=== PATIENT | female | born 1990 | race Hispanic/Latino ===

== ENCOUNTER 2023-07-02 11:52 | Emergency (ER) | payer BC, MEDICAID ==
[~2023-07-02] VITALS: Ht 165.1 cm; Wt 82.1 kg
[2023-07-02 13:03] VITALS: BP 134/71; PULSE 102; RESP 16; O2SAT 97
[2023-07-02 14:36] LABS: BASOPHILS # (AUTO) 0.05 K/uL (0.00-0.20); BASOPHILS % (AUTO) 0.7 % (0.0-5.0); EOSINOPHILS % (AUTO) 1.4 % (0.0-8.0); IMMATURE GRANULOCYTE ABSOLUTE 0.03 K/uL (0-1); LYMPHOCYTES # (AUTO) 2.1 K/uL (1.0-4.8); LYMPHOCYTES % (AUTO) 28.6 % (21.0-51.0); MEAN CORPUSCULAR VOLUME 81.6 fL (79-99); MONOCYTES # (AUTO) 0.5 K/uL (0.1-1.0); MONOCYTES % (AUTO) 6.3 % (3.0-13.0); NEUTROPHILS # (AUTO) 4.6 K/uL (1.8-7.7); NEUTROPHILS % (AUTO) 62.6 % (40.0-77.0); PLATELET COUNT (AUTO) 212 K/uL (130-400); RED BLOOD CELL COUNT(AUTO) 4.85 MIL/uL (4.00-5.50); WHITE BLOOD COUNT (AUTO) 7.3 K/uL (4.8-10.8)
[2023-07-02 14:48] LABS: POTASSIUM 4.1 mmol/L (3.5-5.1)
[2023-07-02 14:51] LABS: APPEARANCE,URINE CLEAR (CLEAR); BILIRUBIN,URINE NEGATIVE (NEGATIVE); COLOR,URINE COLORLESS (YELLOW); GLUCOSE, URINE (UA) >=1000 mg/dL (NEGATIVE); KETONES,URINE 40 mg/dL (NEGATIVE); LEUKOCYTE ESTERASE ,URINE NEGATIVE Leu/uL (NEGATIVE); NITRATE,URINE NEGATIVE (NEGATIVE); OCCULT BLOOD,URINE NEGATIVE (NEGATIVE); PH,URINE 5.5 (5.0-8.0); PROTEIN,URINE 30 mg/dL (NEGATIVE); UROBILINOGEN,URINE 0.2 mg/dL (0.2-1.0)
[2023-07-02 14:54] LABS: ADD UA MICROSCOPIC YES
[2023-07-02 15:11] LABS: MUCUS,URINE RARE LPF (None Seen); SQUAMOUS EPITHELIAL CELL,UR RARE /HPF (0-2); WBC,URINE 0-1 /HPF (0-1)
[2023-07-02 15:24] LABS: MEAN CORPUSCULAR HEMOGLOBIN 30.5 pg (27.0-33.0)
[2023-07-02 15:25] LABS: MEAN CORPUSCULAR HGB CONC 36.4 g/dL (32.0-36.0)
[2023-07-02 15:26] LABS: HEMATOCRIT 40.1 % (36-48)
[2023-07-02 16:08] LABS: ALBUMIN 3.4 g/dL (3.5-5.0); BILIRUBIN,TOTAL 0.3 mg/dL (0.2-1.0); CREATININE 0.7 mg/dL (0.5-1.5); TOTAL PROTEIN, SERUM 7.8 g/dL (6.0-8.3)
== END 2023-07-02 15:04 | disposition home or self-care (01) ==
LOC: EDH 11:52
DX: O20.9 Hemorrhage in early pregnancy, unspecified (principal); E10.9 Type 1 diabetes mellitus without complications; Z3A.01 Less than 8 weeks gestation of pregnancy
CPT/HCPCS: 36415; 80053; 81001; 84703; 85025; 86900; 86901

== ENCOUNTER 2024-03-28 11:13 | Emergency (ER) | payer BC, MEDICAID ==
[~2024-03-28] VITALS: Ht 165.1 cm; Wt 83.5 kg
[~2024-03-28 11:13] MED LIST: ATOR40TA69 PO; CEPH500C2 PO; FENO145T PO; INSLAN SQ; INSU100I15 SQ; LISI40TA9 PO
[2024-03-28 11:16] VITALS: BP 132/87; PULSE 105; RESP 16
[2024-03-28] MEDS ORDERED: VALA100031 PO (14:10)
== END 2024-03-28 14:26 | disposition home or self-care (01) ==
LOC: EDH 11:13
DX: G51.0 Bell's palsy (principal); I10 Essential (primary) hypertension; E78.00 Pure hypercholesterolemia, unspecified; E10.8 Type 1 diabetes mellitus with unspecified complications; Z79.4 Long term (current) use of insulin; Z79.899 Other long term (current) drug therapy; Z91.018 Allergy to other foods
CPT/HCPCS: 70450; 81025

== ENCOUNTER 2024-08-02 14:26 | Emergency (ER) | payer BC, MEDICAID ==
[~2024-08-02] VITALS: Ht 162.6 cm; Wt 80.7 kg
[~2024-08-02 14:26] MED LIST changes: +VALA100031 PO
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
[2024-08-02 14:56] LABS: HCG,QUALITATIVE URINE NEGATIVE (NEGATIVE)
[2024-08-02 15:03] LABS: APPEARANCE,URINE CLOUDY (CLEAR); BILIRUBIN,URINE NEGATIVE (NEGATIVE); COLOR,URINE COLORLESS (YELLOW); GLUCOSE, URINE (UA) >=1000 mg/dL (NEGATIVE); KETONES,URINE 40 mg/dL (NEGATIVE); LEUKOCYTE ESTERASE ,URINE NEGATIVE Leu/uL (NEGATIVE); NITRATE,URINE NEGATIVE (NEGATIVE); OCCULT BLOOD,URINE LARGE (NEGATIVE); PH,URINE 5.5 (5.0-8.0); PROTEIN,URINE 50 mg/dL (NEGATIVE); UROBILINOGEN,URINE 0.2 mg/dL (0.2-1.0)
[2024-08-02 15:04] LABS: BASOPHILS # (AUTO) 0.05 K/uL (0.00-0.20); BASOPHILS % (AUTO) 0.8 % (0.0-5.0); EOSINOPHILS # (AUTO) 0.06 K/uL (0.00-0.70); HEMATOCRIT 37.4 % (36-48); IMMATURE GRANULOCYTE ABSOLUTE 0.01 K/uL (0-1); LYMPHOCYTES # (AUTO) 1.4 K/uL (1.0-4.8); LYMPHOCYTES % (AUTO) 23.5 % (21.0-51.0); MEAN CORPUSCULAR HEMOGLOBIN 30.3 pg (27.0-33.0); MEAN CORPUSCULAR HGB CONC 35.8 g/dL (32.0-36.0); MEAN CORPUSCULAR VOLUME 84.6 fL (79-99); MONOCYTES # (AUTO) 0.4 K/uL (0.1-1.0); NEUTROPHILS # (AUTO) 4.1 K/uL (1.8-7.7); NEUTROPHILS % (AUTO) 67.5 % (40.0-77.0); PLATELET COUNT (AUTO) 248 K/uL (130-400); RED BLOOD CELL COUNT(AUTO) 4.42 MIL/uL (4.00-5.50); RED CELL DISTRIBUTION WIDTH 12.7 % (11.0-15.5)
[2024-08-02 15:04] LABS: ADD UA MICROSCOPIC YES
[2024-08-02 15:26] LABS: BACTERIA,URINE MOD /HPF (None Seen); MUCUS,URINE RARE LPF (None Seen); SQUAMOUS EPITHELIAL CELL,UR RARE /HPF (0-2); YEAST,URINE BUDDING RARE /HPF (None Seen)
--- NOTE | 2024-08-02 15:36 | EKG ---
[facility] Test Date: 2024-08-02 Test Time: 15:33:21 Pat Name: TRISHA ABARCA Department: ED Room: Gender: F Chef: [id number] : 1990 Requested By: KASH EMANUEL Order Number: [id number] Reading MD: Anjum Vázquez Measurements Intervals [place] Rate: 105 P: 50 PA: 131 QRS: 41 QRSD: 75 T: 77 QT: 352 QTc: 465 Interpretive Statements Sinus tachycardia No previous ECG available for comparison Electronically Signed On 08-02-2024 17:30:50 CDT by Anjum Vázquez Please click the below link to view image of tracing.
[2024-08-02 15:42] LABS: ALBUMIN 3.1 g/dL (3.5-5.0); BILIRUBIN,TOTAL 0.4 mg/dL (0.2-1.0); CREATININE 0.9 mg/dL (0.5-1.0); POTASSIUM 4.1 mmol/L (3.5-5.1); TOTAL PROTEIN, SERUM 7.1 g/dL (6.0-8.3)
[2024-08-02 16:24] LABS: ABG HCO3 19.2 mmol/L (21.0-28.0); ABG OXYGEN SATURATION 97.7 % (94.0-98.0); ABG PCO2 31 mmHg (32-45); ABG PH 7.415 (7.350-7.450); DEVICE COMMENT RR; PO2, ARTERIAL BG 99.6 mmHg (83.0-108.0); VENT MODE, BG ROOM AIR (ROOM AIR)
[2024-08-02] MEDS: 0.9%NACL 1000ML 1,000 ML IV ONE (17:51)
[2024-08-02 17:52] VITALS: TEMP 98.4
[2024-08-02] MEDS: ketOROlac 15MG/ML VIAL (15MG/ML) IV ONE (17:52)
[2024-08-02 19:25] VITALS: BP 140/90; PULSE 92; RESP 20; O2SAT 97
[2024-08-02] MEDS ORDERED: INSULIN humuLIN R 100 UNIT/ML 3ML SQ ONE (19:30)
--- NOTE | 2024-08-02 20:31 | NUR ---
PATIENT AMA; PATIENT REQUESTING TO LEAVE AMA AT THIS TIME. ED MD AT BEDSIDE; PRIMARY NURSE AT BEDSIDE; PATIENT REPORTS FEELING BETTER AND REQUESTING TO LEAVE AMA AT THIS TIME. PATIENT WAS REINFORCED BY PRIMARY RN, ED MD ABNOUT ELEVATED BS, RISKS AND CONCEQUENCES INVOLVED WITH LEAVING HOSPITAL AT THIS TIME INCLUDING BUT NOT LIMITING , AND THE BENIFITS OF CONTINUED [place]. PATIENT STATES UNDERSTANDING AND IS STILL REQUESTING TO LEAVE AMA AT THIS TIME. PATIENT ADVISED TO CALL 911, OR RETURN TO NEAREST ED FOR RETURN OR WORSENING OF SYMPTOMS. PATIENT STATES UNDERSTANDING.
== END 2024-08-02 22:37 | disposition left against medical advice (07) ==
LOC: EDH 14:26
DX: E11.65 Type 2 diabetes mellitus with hyperglycemia (principal); E86.0 Dehydration; M54.50 Low back pain, unspecified; I10 Essential (primary) hypertension; E78.00 Pure hypercholesterolemia, unspecified; Z79.4 Long term (current) use of insulin; Z79.624 Long term (current) use of inhibitors of nucleotide synthesis; Z79.899 Other long term (current) drug therapy; Z91.148 Patient's other noncompliance with medication regimen for other reason
CPT/HCPCS: 99284; 96374; 96361; 83735; 80053; 82803; 83690; 85025; 82948 ×2; 81001; 81025; 36415; 93005; 36600; J7030; J1885

== ENCOUNTER 2024-08-19 15:42 | Inpatient (IN) | payer BC, MEDICAID ==
[~2024-08-19] VITALS: Ht 162.6 cm; Wt 36.7 kg
[2024-08-19 16:36] LABS: BASOPHILS # (AUTO) 0.03 K/uL (0.00-0.20); BASOPHILS % (AUTO) 0.5 % (0.0-5.0); EOSINOPHILS # (AUTO) 0.06 K/uL (0.00-0.70); HEMATOCRIT 35.3 % (36-48); IMMATURE GRANULOCYTE ABSOLUTE 0.02 K/uL (0-1); LYMPHOCYTES # (AUTO) 1.4 K/uL (1.0-4.8); LYMPHOCYTES % (AUTO) 23.2 % (21.0-51.0); MEAN CORPUSCULAR HGB CONC 35.4 g/dL (32.0-36.0); MEAN CORPUSCULAR VOLUME 84.9 fL (79-99); MONOCYTES # (AUTO) 0.4 K/uL (0.1-1.0); MONOCYTES % (AUTO) 6.6 % (3.0-13.0); NEUTROPHILS # (AUTO) 4.1 K/uL (1.8-7.7); NEUTROPHILS % (AUTO) 68.4 % (40.0-77.0); PLATELET COUNT (AUTO) 188 K/uL (130-400); RED BLOOD CELL COUNT(AUTO) 4.16 MIL/uL (4.00-5.50); RED CELL DISTRIBUTION WIDTH 12.9 % (11.0-15.5)
[2024-08-19 16:48] LABS: CREATININE 0.6 mg/dL (0.5-1.0); POTASSIUM 4.7 mmol/L (3.5-5.1)
[2024-08-19 16:52] LABS: APPEARANCE,URINE CLEAR (CLEAR); BILIRUBIN,URINE NEGATIVE (NEGATIVE); COLOR,URINE LIGHT-YELLOW (YELLOW); GLUCOSE, URINE (UA) >=1000 mg/dL (NEGATIVE); KETONES,URINE 40 mg/dL (NEGATIVE); LEUKOCYTE ESTERASE ,URINE NEGATIVE Leu/uL (NEGATIVE); NITRATE,URINE NEGATIVE (NEGATIVE); OCCULT BLOOD,URINE NEGATIVE (NEGATIVE); PH,URINE 5.5 (5.0-8.0); PROTEIN,URINE 30 mg/dL (NEGATIVE); UROBILINOGEN,URINE 0.2 mg/dL (0.2-1.0)
[2024-08-19 16:54] LABS: ADD UA MICROSCOPIC YES
[2024-08-19 17:02] LABS: HCG,QUALITATIVE URINE NEGATIVE (NEGATIVE)
[2024-08-19 17:05] LABS: BACTERIA,URINE RARE /HPF (None Seen); MUCUS,URINE RARE LPF (None Seen); SQUAMOUS EPITHELIAL CELL,UR RARE /HPF (0-2)
[2024-08-19] MEDS: 0.9%NACL 1000ML 1,000 ML IV ONE (17:06)
[2024-08-19] MEDS: hydroMORPHone 1 MG INJ IVP ONE (17:28)
[2024-08-19 18:45] LABS: ALBUMIN 2.9 g/dL (3.5-5.0); BILIRUBIN,DIRECT 0.1 mg/dL (0.0-0.3); BILIRUBIN,TOTAL 0.5 mg/dL (0.2-1.0); TOTAL PROTEIN, SERUM 6.9 g/dL (6.0-8.3)
[2024-08-19 18:50] LABS: ABG BASE EXCESS -0.9 mmol/L (-2.0-3.0); ABG HCO3 23.1 mmol/L (21.0-28.0); ABG OXYGEN SATURATION 96.8 % (94.0-98.0); ABG PCO2 36 mmHg (32-45); ABG PH 7.421 (7.350-7.450); DEVICE COMMENT RR LILYRN; PO2, ARTERIAL BG 86.3 mmHg (83.0-108.0); VENT MODE, BG RA (ROOM AIR)
[2024-08-19] MEDS: INSULIN humuLIN R 100 UNIT/ML 3ML SQ ONE (19:58)
[2024-08-19] MEDS: FAMOTIDINE 20MG VIAL IV SCH (21:01)
[2024-08-19] MEDS: morPHINE 2 MG SYG IVP PRN (21:09)
[2024-08-19] MEDS ORDERED: DEXTROSE 5 %-0.45 % NACL 1,000 ML IV SCH ×2 (22:00)
[2024-08-19] MEDS ORDERED: INSULIN REGULAR, HUMAN 3ML 100 UNIT in 0.9%NACL 100ML 100 ML IV SCH ×2 (22:00)
[2024-08-19] MEDS ORDERED: SODIUM CL 4MEQ/ML 30ML 154 MEQ in DEXTROSE 10%-WATER 961.5 ML IV SCH (22:00)
[2024-08-19] MEDS ORDERED: MAGNESIUM 2GM PREMIX 50ML 50 ML IV SCH ×2 (22:00)
[2024-08-19] MEDS ORDERED: 0.9%NACL 1000ML 1,000 ML IV SCH ×2 (22:00)
[2024-08-19] MEDS ORDERED: INSULIN REGULAR, HUMAN 3ML 100 UNIT in 0.9%NACL 100ML 99 ML IV SCH (22:00)
[2024-08-19] MEDS ORDERED: D5W-1/2 NS/20MEQ KCL 1,000 ML IV SCH ×2 (22:00)
[2024-08-19] MEDS ORDERED: PoTASSium chloRIDE 20MEQ/10ML 20 MEQ in 0.9%NACL 1000ML 1,000 ML IV SCH ×2 (22:00)
[2024-08-19 22:18] LABS: CREATININE 0.5 mg/dL (0.5-1.0); POTASSIUM 3.7 mmol/L (3.5-5.1)
[2024-08-19 22:46] VITALS: TEMP 98.2
[2024-08-19 23:20] VITALS: BP 139/84; PULSE 87; RESP 16
[2024-08-19 23:30] VITALS: BP 148/91; PULSE 88; RESP 13
[2024-08-19 23:45] VITALS: BP 143/93; PULSE 91; RESP 15
[2024-08-20] VITALS: BP 129/85; PULSE 90; RESP 14; O2SAT 96
[2024-08-20] MEDS ORDERED: MAGNESIUM 2GM PREMIX 50ML 50 ML IV PRN
[2024-08-20] MEDS ORDERED: PoTASSium chloRIDE 10MEQ/100ML 100 ML IV PRN
[2024-08-20] MEDS ORDERED: INSLAN SQ ×2 (00:15)
[2024-08-20] MEDS ORDERED: PROPRANOLOL PO (00:15)
[2024-08-20 00:50] LABS: CREATININE 0.5 mg/dL (0.5-1.0); POTASSIUM 3.6 mmol/L (3.5-5.1)
== END 2024-08-20 01:30 | disposition left against medical advice (07) | DRG 637 ==
LOC: EDH 15:42 → EDHIP 20:16 → 2CH 23:39
PROVIDERS: ADMIT Internal Medicine; ATTEND Internal Medicine
DX: E11.65 Type 2 diabetes mellitus with hyperglycemia (principal); K85.90 Acute pancreatitis without necrosis or infection, unspecified; E44.0 Moderate protein-calorie malnutrition; Z68.1 Body mass index [BMI] 19.9 or less, adult; E78.00 Pure hypercholesterolemia, unspecified; E78.1 Pure hyperglyceridemia; I10 Essential (primary) hypertension; J45.909 Unspecified asthma, uncomplicated; Z53.29 Procedure and treatment not carried out because of patient's decision for other reasons; Z79.4 Long term (current) use of insulin; Z82.49 Family history of ischemic heart disease and other diseases of the circulatory system; Z91.199 Patient's noncompliance with other medical treatment and regimen due to unspecified reason; Z98.891 History of uterine scar from previous surgery
CPT/HCPCS: 36415; 36600; 80048; 80076; 81001; 81025; 82010; 82803; 82948; 83690; 84478; 85025; 87086; 87186; G0378; J1171; J1815; J2270; J3480; J3490; J7030

== ENCOUNTER → 2025-05-28 | Emergency (ER) | payer BC, MEDICAID ==
[~2025-05-28] VITALS: Ht 162.6 cm; Wt 84.8 kg
[~2025-05-28] MED LIST changes: +0.9%NACL 1000ML 1,000 ML IV ONE; -CEPH500C2 PO; -FENO145T PO; -INSU100I15 SQ; +LISI40TA15 PO; -LISI40TA9 PO; +PROPRANOLOL PO; -VALA100031 PO
[2025-05-28 11:23] VITALS: BP 140/90; PULSE 106; RESP 18; TEMP 97.9
--- NOTE | 2025-05-28 11:29 | ERN ---
ED Note History of Present Illness Stated Complaint: ABD PAIN Chief Complaint: Abdominal Pain Time Seen by MD: 11:24 Dictation: PATIENT IS A 34-YEAR-OLD FEMALE COMING IN TODAY WITH A HISTORY OF DIABETES DKA IN CHRONIC PANCREATITIS COMPLAINING OF EPIGASTRIC AND LEFT UPPER QUADRANT PAIN WITH NAUSEA VOMITING FOR THE LAST THREE WEEKS. NO FEVER NO CHILLS, NO CHEST PAIN BACK PAIN OR SOB. SHE DOES NOT HAVE A PRIMARY CARE DOCTOR AND STATES I DO TAKE MY INSULIN LEFTOVER FROM THE LAST ADMISSION AND I DO CHECKED MY BLOOD SUGAR. Allergies: Coded Allergies: Pork/Porcine Containing Products (Unverified Allergy, Unknown, 08/02/23) Home Meds Active Scripts Atorvastatin Calcium (LIPITOR) 40 Mg Tablet, 40 MG PO DAILY for 30 Days, #30 TAB 3 Refills Prov:TYRONE DALY MD 08/05/23 Lisinopril (Lisinopril) 40 Mg Tablet, 40 MG PO DAILY, #30 TAB 3 Refills Prov:TYRONE DALY MD 08/05/23 Reported Medications [Propranolol] No Conflict Check, PO DAILY 08/20/24 Insulin Glargine,Hum.rec.anlog (Lantus) 100 Unit/Ml Inj, 56 UNITS SQ PM, ML 08/20/24 Insulin Glargine,Hum.rec.anlog (Lantus) 100 Unit/Ml Inj, 45 UNITS SQ AM, ML 08/20/24 Past Medical History Past Medical History: Diabetes-Type I, High Cholesterol, Hypertension, Pancreatitis Additional Past Medical Hx: NON COMPLIANTS W/ MEDS, Surgical History: Surgical History Other: D&C Family History: Negative Social History: Negative, Lives with family History: Not Applicable : 5 Para: 3 Aborts: 1 RN Note Reviewed/Agreed w/PFSH: Yes Review of System Dictation CONSTITUTIONAL: NEGATIVE EXCEPT FOR HPI HEAD/FACE: NEGATIVE EXCEPT FOR HPI EENT: NEGATIVE EXCEPT FOR HPI RESPIRATORY: NEGATIVE EXCEPT FOR HPI GASTROINTESTINAL/ABDOMINAL: NEGATIVE EXCEPT FOR HPI EPIGASTRIC AND LEFT UPPER QUADRANT PAIN WITH NAUSEA VOMITING GENITOURINARY: NEGATIVE EXCEPT FOR HPI MUSCULOSKELETAL: NEGATIVE EXCEPT FOR HPI INTEGUMENTARY: NEGATIVE EXCEPT FOR HPI NEUROLOGICAL/PSYCH: NEGATIVE EXCEPT FOR HPI HEMATOLOGIC/LYMPHATIC: NEGATIVE EXCEPT FOR HPI ALL SYSTEMS NEGATIVE, EXCEPT NOTED ABOVE. 13 POINT REVIEW OF SYSTEMS ASSESSED AND ALL NEGATIVE EXCEPT FOR ABOVE. Initial Vital Sign VS Vital Signs Date Time Temp Pulse Resp B/P (MAP) Pulse Ox O2 Delivery O2 Flow Rate FiO2 05/28/25 11:23 97.9 106 18 140/90 97 0 Physical Exam Dictation VITAL SIGNS REVIEWED GENERAL APPEARANCE: ALERT, ORIENTED X 3, MODERATE ACUTE DISTRESS, WELL DEVELOPED, NOURISHED. OBESE HEAD AND FACE: NON-TRAUMATIC. EYES: PERRL, PINK CONJUNCTIVAS, EYELID NO TRAUMA, ANTERIOR CHAMBER WITH ARCUS SENILIS. EARS: PINNAS INTACT AND NO SIGNS OF TRAUMA OR ERYTHEMA EAR CANALS CLEAR AND NO DISCHARGE TM NO ERYTHEMA NOSE: NO DISCHARGE, NO BLEEDING. OROPHARYNX: MOUTH NORMAL, TONGUE PINK, PHARYNX CLEAR,NO ERYTHEMA, TONSILS NO EXUDATES, NO ABSCESSES NOTED, MUCOUS MEMBRANE MOIST NECK: SUPPLE, NON-TENDER, NO THYROMEGALY, NO MASSES, NO JVD, NO BRUITS BREAST:DEFERRED CHEST:NO TENDERNESS, NO CREPITUS, NO PARADOXICAL MOVEMENT, NO RETRACTIONS LUNGS:CLEAR, WELL-VENTILATED, SYMMETRIC, NO RALES, NO WHEEZING, NO RHONCHI, NO STRIDOR, GOOD BREATH SOUNDS BILATERALLY HEART: REGULAR RATE, REGULAR RHYTHM, NO MURMUR, NO GALLOPS VASCULAR: NO PERIPHERAL EDEMA, ABDOMEN: SOFT, POSITIVE BOWEL SOUNDS, NONDISTENDED, NO GUARDING, EPIGASTRIC AND LEFT UPPER QUADRANT PAIN TENDERNESS WITH PALPATION. RECTAL: DEFERRED GENITAL: DEFERRED NEUROLOGICAL: NORMAL SPEECH, MOTOR FUNCTION INTACT, SENSORY FUNCTION INTACT MUSCULOSKELETAL: NECK NONTENDER, FULL RANGE OF MOTION, BACK NONTENDER, FULL RANGE OF MOTION, EXTREMITIES: NONTENDER, FULL RANGE OF MOTION SKIN: COLOR PINK, DRY, NO TURGOR, NO RASH, NO LACERATIONS, NO ABRASIONS, NO CONTUSIONS. LYMPHATIC: DEFERRED Results (Laboratory/Radiology) Labs Reviewed?: Yes ED Course ED Course Orders Procedure Category Date Status Time Ketone Blood LAB 05/28/25 Logged Quantitative 11: Triglycerides LAB 05/28/25 Logged 11:26 Cbc With Differential LAB 05/28/25 Logged 11:26 ,Urine Test LAB 05/28/25 Logged 11:26 Urinalysis Profile LAB 05/28/25 Logged 11:26 0.9%Nacl 1000ml (Ns PHA 05/28/25 Complete 1000ml) 11:30 Morphine 2mg Syg PHA 05/28/25 Complete (Morphine 2mg Syg) 11:30 Ondansetron 4mg Inj PHA 05/28/25 Complete (Zofran 4mg Inj) 11:30 Lipase LAB 05/28/25 Logged 11:26 Basic Metabolic Panel LAB 05/28/25 Logged 11:26 Current Medications Medications (Trade) Dose Ordered Sig/Deacon Route PRN Reason Start Time Stop Time Status Last Admin Dose Admin Morphine Sulfate (morPHINE 2MG SYG) 2 mg ONCE ONCE IVP 05/28/25 11:30 05/28/25 11:32 DC Ondansetron HCl (zoFRAN 4MG INJ) 4 mg ONCE ONCE IVP 05/28/25 11:30 05/28/25 11:32 DC Sodium Chloride 1,000 ml @ 0 mls/hr ONCE ONCE IV 05/28/25 11:30 05/28/25 11:32 DC Vital Signs Date Time Temp Pulse Resp B/P (MAP) Pulse Ox O2 Delivery O2 Flow Rate FiO2 05/28/25 11:23 97.9 106 18 140/90 97 0 1132/PATIENT TOLD CHRIS RN THAT SHE HAD BEEN ADVISED TO GO BACK TO [facility] WHERE SHE HAS BEEN INSTRUCTED TO GO AND SHE WAS GOING TO LEAVE. SHE ELOPED FROM THE WAITING ROOM. DID NOT SIGN AMA PAPERS. Medical Decision Making MDM MDM ELOPED FROM THE WAITING ROOM. DX & DISP Disposition: AMA Departure Impression: Primary Impression: Intractable abdominal pain Additional Impression: Nausea & vomiting Condition: Stable Referrals: SELF,REFERRAL (PCP) I have reviewed the case, and I agree with, Diagnosis and Plan RAH HI DIRECTOR OF RADIO SERVICES May 28, 2025 11:29
--- NOTE | 2025-05-28 11:35 | NUR ---
1134 PT COMES BACK TO WINDOW STATES SHE DOES NOT WANT TO BE SEEN AFTERRAH VILLA NP ALREADY ASSESSED PT , URINE WAS SENT TO LAB PRIOR. PT STATED ( ILL JUST GO BACK TO [facility] LIKE THEY TOLD ME TO). I INFORMED PT IF SHE CHANGES HER MIND TO COME BACK IF SHE WANTS TO. NOTIFIED RAH ONEIL PT CHOSE TO LEAVE DID NOT STATES WHY.
== END ==
LOC: EDH 11:21
DX: R10.13 Epigastric pain (principal); R10.12 Left upper quadrant pain; R11.2 Nausea with vomiting, unspecified; I10 Essential (primary) hypertension; E10.9 Type 1 diabetes mellitus without complications; E78.00 Pure hypercholesterolemia, unspecified; Z79.899 Other long term (current) drug therapy; Z79.4 Long term (current) use of insulin; Z98.890 Other specified postprocedural states
CPT/HCPCS: 99281